=== PATIENT | female | born 2005 | race Caucasian/White ===

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

== ENCOUNTER 2024-10-26 10:03 | Outpatient (CLI) | payer BC | END 2024-10-26 10:04 | disposition home or self-care (01) | LOC: RAD 10:03 | DX: R05.3 Chronic cough (principal) | CPT/HCPCS: 71046 ==